=== PATIENT | male | born 1965 | race Caucasian/White ===

== ENCOUNTER 2017-02-16 06:56 | Emergency (ER) | payer MEDICARE, MEDICAID ==
[2017-02-16] MEDS ORDERED: Oseltamivir 75 MG CAP ONE (07:35)
[2017-02-16] MEDS ORDERED: Ondansetron ODT 4 MG TAB ONE (07:35)
== END 2017-02-16 08:03 | disposition home or self-care (01) ==
LOC: BURERS 06:56
DX: J11.1 Influenza due to unidentified influenza virus with other respiratory manifestations (principal); F17.220 Nicotine dependence, chewing tobacco, uncomplicated; M19.90 Unspecified osteoarthritis, unspecified site; Z79.899 Other long term (current) drug therapy
CPT/HCPCS: 99283; Q0162

== ENCOUNTER 2018-11-13 21:59 | Emergency (ER) | payer MEDICARE, MEDICAID ==
[2018-11-13] MEDS ORDERED: Acetaminophen/Codeine 30-300mg Tablet ONE (22:24)
[2018-11-13] MEDS ORDERED: Ketorolac Tromethamine 60 MG/2 ML VIAL ONE (22:24)
== END 2018-11-13 22:30 | disposition home or self-care (01) ==
LOC: BURERS 21:59
DX: S83.91XA Sprain of unspecified site of right knee, initial encounter (principal); F17.220 Nicotine dependence, chewing tobacco, uncomplicated; X50.1XXA Overexertion from prolonged static or awkward postures, initial encounter
CPT/HCPCS: 96372; 99283; J1885

== ENCOUNTER 2019-07-30 15:07 | Emergency (ER) | payer MEDICARE, OTHER ==
[2019-07-30] MEDS ORDERED: Hydrocodone-Acetamin 15 ML UDCUP ONE (16:11)
[2019-07-30] MEDS ORDERED: HYDROcodone/Acetaminophen 5/325 mg Tablet ONE (16:13)
--- NOTE | 2019-07-30 18:18 | RAD ---
LEFT HUMERUS TWO VIEWS: 07/30/19 No fracture was seen. The humerus appears intact. There is no dislocation at the shoulder. IMPRESSION: No acute finding. POS: HOME
--- NOTE | 2019-07-30 18:40 | RAD ---
LEFT ELBOW FOUR VIEWS: 07/30/19 No definite acute fracture was seen. The anterior fat pad is slightly prominent but no posterior fat pad of concern was seen, thus, a large joint effusion is not suspected. The radial head appears bam l at this point in time. IMPRESSION: No definite acute findings. POS: HOME
== END 2019-07-30 16:45 | disposition home or self-care (01) ==
LOC: BURERS 15:07
DX: S50.02XA Contusion of left elbow, initial encounter (principal); F17.220 Nicotine dependence, chewing tobacco, uncomplicated; W01.198A Fall on same level from slipping, tripping and stumbling with subsequent striking against other object, initial encounter

== ENCOUNTER 2019-12-02 01:20 | Emergency (ER) | payer MEDICARE, MEDICAID ==
[2019-12-02] MEDS ORDERED: Ketorolac Tromethamine 30 MG/ML VIAL ONE (01:56)
[2019-12-02] MEDS ORDERED: Ondansetron ODT 4 MG TAB ONE (01:56)
== END 2019-12-02 02:12 | disposition home or self-care (01) ==
LOC: BURERS 01:20
DX: G89.18 Other acute postprocedural pain (principal); M25.561 Pain in right knee; F17.220 Nicotine dependence, chewing tobacco, uncomplicated
CPT/HCPCS: 96372; 99283; J1885; Q0162

== ENCOUNTER 2020-10-13 19:04 | Emergency (ER) | payer MEDICARE, MEDICAID | END 2020-10-13 20:00 | disposition left against medical advice (07) | LOC: BURERS 19:04 | DX: Z53.21 Procedure and treatment not carried out due to patient leaving prior to being seen by health care provider (principal) ==

== ENCOUNTER 2022-03-23 07:30 | Emergency (ER) | payer OTHER ==
[2022-03-23] MEDS ORDERED: Ibuprofen 200 MG TAB ONE ×2 (07:56→08:02)
== END 2022-03-23 09:10 | disposition home or self-care (01) ==
LOC: BURERS 07:30
DX: M43.6 Torticollis (principal); F17.220 Nicotine dependence, chewing tobacco, uncomplicated

== ENCOUNTER 2022-04-11 12:37 | Emergency (ER) | payer OTHER | END 2022-04-11 13:45 | disposition home or self-care (01) | LOC: BURERS 12:37 | DX: G58.9 Mononeuropathy, unspecified (principal); F17.220 Nicotine dependence, chewing tobacco, uncomplicated | CPT/HCPCS: 99283 ==

== ENCOUNTER 2022-04-18 21:56 | Emergency (ER) | payer OTHER, MEDICAID ==
[2022-04-18] MEDS ORDERED: Sulfameth/Trimethoprim DS 800-160mg TAB ONE (22:27)
[2022-04-18] MEDS ORDERED: HYDROcodone/Acetaminophen 10/325 mg Tablet ONE (22:27)
[2022-04-18] MEDS ORDERED: Cephalexin 250 MG CAP ONE (22:27)
[2022-04-18] MEDS ORDERED: Bacitracin 1 PK ONE (22:28)
== END 2022-04-18 22:43 | disposition home or self-care (01) ==
LOC: BURERS 21:56
DX: T21.22XA Burn of second degree of abdominal wall, initial encounter (principal); S39.012A Strain of muscle, fascia and tendon of lower back, initial encounter; F17.220 Nicotine dependence, chewing tobacco, uncomplicated; W18.30XA Fall on same level, unspecified, initial encounter
CPT/HCPCS: 99283

== ENCOUNTER 2024-09-28 10:39 | Emergency (ER) | payer OTHER, MEDICAID ==
[2024-09-28] MEDS ORDERED: HYDROcodone/Acetaminophen 5/325 mg Tablet ONE (11:06)
== END 2024-09-28 12:08 | disposition home or self-care (01) ==
LOC: BURERS 10:39
DX: M25.521 Pain in right elbow (principal); I50.9 Heart failure, unspecified; F17.220 Nicotine dependence, chewing tobacco, uncomplicated; E66.01 Morbid (severe) obesity due to excess calories
CPT/HCPCS: 96372; 99283; J1885

== ENCOUNTER 2025-01-05 10:22 | Emergency (ER) | payer OTHER, MEDICAID ==
[2025-01-05] MEDS ORDERED: Dexamethasone 10 MG/ML VIAL ONE (11:29)
== END 2025-01-05 12:09 | disposition home or self-care (01) ==
LOC: BURERS 10:22
DX: M54.32 Sciatica, left side (principal); I50.9 Heart failure, unspecified; E66.01 Morbid (severe) obesity due to excess calories; F17.220 Nicotine dependence, chewing tobacco, uncomplicated
CPT/HCPCS: 96372; 99283; J1100; J3010